=== PATIENT | male | born 1955 ===

== ENCOUNTER 2024-02-12 14:52 | Emergency (ER) | payer SELFPAY ==
[2024-02-12 15:23] VITALS: BP 157/94; PULSE 67; RESP 18; TEMP 97.3
--- NOTE | 2024-02-12 15:37 | ED ---
Lower Extremity Injury HPI - General Source: patient, RN notes reviewed Mode of arrival: ambulatory Limitations: no limitations <Kourtney He - Last Filed: 02/12/24 15:36> - General Source: patient, RN notes reviewed, old records reviewed <David Fink - Last Filed: 02/12/24 22:29> - General Chief Complaint: Extremity Injury, Lower Stated Complaint: post-op knee injury Time Seen by Provider: 02/12/24 15:35 - History of Present Illness Initial Comments: Quick Note: This is a 68-year-old male who presents to the emergency department for right knee pain. States that he was leaning on a paddle board 4 to 5 days ago and believes that he was putting a lot of pressure on the right knee. Not entirely sure what kind of maneuver may have occurred, but states that since then he has had increasing pain to the right knee that seems to be getting progressively worse. (Kourtney He) Patient is a 68-year-old male who presents emergency department complaining of right knee pain. Patient was kneeling on a paddle board for 5 days ago. Since that time has been complaining of worsening pain over the anterior aspect of his right knee on the kneecap. No obvious injury. No obvious fracture. No significant past medical history. Able to ambulate as well as have full range of motion. Presents for x-rays and further evaluation. Patient presented originally as a quick note. (David Fink) - Related Data Allergies Allergy/AdvReac Type Severity Reaction Status Date / Time No Known Allergies Allergy Verified 02/12/24 15:23 Review of Systems ROS Other: All systems not noted in ROS Statement are negative. <Kourtney He - Last Filed: 02/12/24 15:36> ROS Other: All systems not noted in ROS Statement are negative. <David Fink - Last Filed: 02/12/24 22:29> ROS Statement: Those systems with pertinent positive or pertinent negative responses have been documented in the HPI. Review of Systems: CONST: Denies fever EYES: Denies blurry vision ENT: Denies nasal congestion C/V: Denies Chest pain RESP: Denies shortness of breath GI: Denies abdominal pain : Denies dysuria SKIN: Denies rash. MSK: Endorses right knee pain NEURO: Denies headache (David Fink) Past Medical History Past Medical History: No Reported History History of Any Multi-Drug Resistant Organisms: None Reported Past Surgical History: No Surgical Hx Reported Past Psychological History: No Psychological Hx Reported Smoking Status: Never smoker Past Alcohol Use History: None Reported Past Drug Use History: Marijuana <Kourtney He - Last Filed: 02/12/24 15:36> General Exam Limitations: no limitations <Kourtney He - Last Filed: 02/12/24 15:36> <David Fink - Last Filed: 02/12/24 22:29> - General Exam Comments Initial Comments: Visual Physical Exam Vital signs reviewed General: Well-appearing, nontoxic, no acute distress. Head: Normocephalic, atraumatic Eyes: PERRLA, EOMI ENT: Airway patent Chest: Nonlabored breathing Skin: No visual rash, normal skin tone Neuro: Alert and oriented 3 Musculoskeletal: No gross abnormalities (Kourtney He) General: Appears in no acute distress. HEAD: Normal with no signs of head trauma. EYES: EOMI. ENT: Hearing grossly intact. RESPIRATORY: No respiratory distress. C/V: Regular rate and rhythm. ABD: Abdomen is nondistended. EXT: No obvious deformity. Normal range of motion of the right knee. Tenderness to palpation over the patella. Ambulates without issue. No joint line tenderness. No obvious laxity. Neurovascular intact throughout the right lower extremity. SKIN: No rashes or lesions observed on exposed skin. NEURO: Alert and oriented. (David Fink) Course Vital Signs 02/12/24 15:17 Temperature 97.3 F L Pulse Rate 67 Respiratory 18 Rate Blood Pressure 157/94 O2 Sat by Pulse 98 Oximetry Medical Decision Making <Kourtney He - Last Filed: 02/12/24 15:36> <David Fink - Last Filed: 02/12/24 22:29> - Medical Decision Making I performed the QuickNote portion of this chart. Signed Kourtney He PA-C. (Kourtney He) Was pt. sent in by a medical professional or institution ([facility], [facility], urgent care, hospital, or residential...) When possible be specific @ -No Did you speak to anyone other than the patient for history (EMS, parent, family, police, friend...)? What history was obtained from this source @ -No Did you review nursing and triage notes (agree or disagree)? Why? @ -I reviewed and agree with nursing and triage notes Were old charts reviewed (outside hosp., previous admission, EMS record, old EKG, old radiological studies, urgent care reports/EKG's, residential records)? Report findings @ -No old charts were reviewed Differential Diagnosis (chest pain, altered mental status, abdominal pain women, abdominal pain men, vaginal bleeding, weakness, fever, dyspnea, syncope, headache, dizziness, GI bleed, back pain, seizure, CVA, palpatations, mental health, musculoskeletal)? @ -Right knee sprain, right patella injury, right knee fracture. This list is not all inclusive. EKG interpreted by me (3pts min.). @ -None done X-rays interpreted by me (1pt min.). @ -Right knee x-ray reveals no evidence of acute traumatic injury. Patient has osteoarthritis. CT interpreted by me (1pt min.). @ -None done U/S interpreted by me (1pt. min.). @ -None done What testing was considered but not performed or refused? (CT, X-rays, U/S, labs)? Why? @ -None What meds were considered but not given or refused? Why? @ -None Did you discuss the management of the patient with other professionals (professionals i.e. , PA, [facility], lab, RT, psych nurse, medical social consultant, public records officer, teacher, bsa/aml compliance officer, case liner)? Give summary @ -No Was smoking cessation discussed for >3mins.? @ -No Was critical care preformed (if so, how long)? @ -No Were there social determinants of health that impacted care today? How? (Homelessness, low income, unemployed, alcoholism, drug addiction, transportation, low edu. Level, literacy, decrease access to med. care, alf, rehab)? @ -No Was there de-escalation of care discussed even if they declined (Discuss DNR or withdrawal of care, Hospice)? DNR status @ -No What co-morbidities impacted this encounter? (DM, HTN, Smoking, COPD, CAD, Cancer, CVA, ARF, Chemo, Hep., AIDS, mental health diagnosis, sleep apnea, morbid obesity)? @ -None Was patient admitted / discharged? Hospital course, mention meds given and route, prescriptions, significant lab abnormalities, going to OR and other pertinent info. @ -Patient presents complaining of atraumatic right knee pain. Originally seen as a quick note. X-ray obtained which revealed no obvious acute traumatic injury. Patient is ambulating on it. Has no other acute complaints. Patient will be given Manuel bandages, instructions for rest, icing, and elevation of the knee. Also be given analgesia medications for home. Patient was in agreement this plan. Vital signs are within acceptable limits. I instructed the patient to follow up with their PCP in the next 1-3 days. I explained that the patient should return to the emergency department if they experience any worsening symptoms. Strict return precautions were discussed with the patient. The patient expressed understanding of these instructions. I answered all questions that the patient had. The patient was discharged home in good condition with their prescriptions and follow up information. Undiagnosed new problem with uncertain prognosis? @ -No Drug Therapy requiring intensive monitoring for toxicity (Heparin, Nitro, Insulin, Cardizem)? @ -No Were any procedures done? @ -No Diagnosis/symptom? @ -Right knee contusion, sprain Acute, or Chronic, or Acute on Chronic? @ -Acute Uncomplicated (without systemic symptoms) or Complicated (systemic symptoms)? @ -Uncomplicated Side effects of treatment? @ -No Exacerbation, Progression, or Severe Exacerbation? @ -No Poses a threat to life or bodily function? How? (Chest pain, [place], [place], pneumonia, PE, COPD, DKA, ARF, appy, cholecystitis, CVA, Diverticulitis, Homicidal, Suicidal, threat to staff... and all critical care pts) @ -No (David Fink) Disposition <Kourtney He - Last Filed: 02/12/24 15:36> Is patient prescribed a controlled substance at d/c from ED?: No Time of Disposition: 17:30 <David Fink - Last Filed: 02/12/24 22:29> Clinical Impression: Knee contusion Disposition: HOME SELF-CARE Condition: Good Instructions (If sedation given, give patient instructions): Knee Sprain (ED), Knee Pain (ED) Referrals: Nonstaff,Physician [Primary Care Provider] - 1-2 days Rm Sorto MD [Medical Doctor] - 1-2 days Forms: [facility] PCPs
--- NOTE | 2024-02-12 16:20 | XR ---
EXAMINATION TYPE: XR knee complete RT DATE OF EXAM: 02/12/2024 4:06 PM CLINICAL INDICATION:Male, 68 years old with history of Pain; [facility] COMPARISON: None. TECHNIQUE: XR knee complete RT; examined in Frontal, lateral and oblique projections. FINDINGS: No evidence of any acute osseous pathology, soft tissue swelling, or joint effusion is no marce. Tricompartmental osteophyte formation involving the femoral condyles, tibial plateau and patella . Mild joint space narrowing. IMPRESSION: 1. No acute osseous pathology. 2. Mild tricompartmental osteoarthritic changes.
[2024-02-12] MEDS: ACET/COD 300 MG/30 MG STARTER PACK 6 TAB BTL PO STA (17:49)
== END 2024-02-12 17:50 | disposition home or self-care (01) ==
LOC: EC 14:52
DX: S80.01XA Contusion of right knee, initial encounter (principal); F12.90 Cannabis use, unspecified, uncomplicated; X58.XXXA Exposure to other specified factors, initial encounter
CPT/HCPCS: 99283